=== PATIENT | female | born 1945 | race Caucasian/White ===

== ENCOUNTER → 2016-10-16 | Outpatient (CLI) | payer MEDICARE, OTHER ==
--- NOTE | 2016-10-16 10:54 | RAD ---
Indication: Low back pain. Time of exam 10:44 AM Left convexity lumbar scoliotic curvature is noted. There appears be leftward lateral subluxation of L3 on L4, seen on the frontal view. There is minimal retrolisthesis of L4 on L5 on the lateral view. Severe multilevel degenerative disc disease is seen. There is near complete loss of all disc spaces from L2-3 through the L5-S1 levels. There is endplate sclerosis and marginal osteophyte formation. No acute compression fracture is seen. There is multilevel facet arthropathy. The abdominal aorta is heavily calcified. Impression: Severe lumbar spondylosis and scoliosis. No acute bony abnormality is detected.
== END | disposition home or self-care (01) ==
LOC: DXRADRC 10:28
PROVIDERS: ATTEND Nurse Practitioner Family
DX: M47.896 Other spondylosis, lumbar region (principal); M41.86 Other forms of scoliosis, lumbar region; G89.29 Other chronic pain
CPT/HCPCS: 72100